=== PATIENT | female | born 1980 | race Two or more races ===

== ENCOUNTER 2023-01-28 14:58 | Emergency (ER) | payer MEDICAID, OTHER ==
[~2023-01-28] VITALS: Ht 165.1 cm; Wt 92.0 kg
[2023-01-28] MEDS ORDERED: IBUP800T27 PO (18:37)
[2023-01-28] MEDS ORDERED: KETOROLAC TROMETH 60MG/2ML VIAL IM ONE (18:45)
[2023-01-28 19:09] VITALS: BP 141/90
== END 2023-01-28 19:16 | disposition home or self-care (01) ==
LOC: ER 14:58
DX: G44.209 Tension-type headache, unspecified, not intractable (principal); I10 Essential (primary) hypertension; Z90.710 Acquired absence of both cervix and uterus
CPT/HCPCS: 70450; 96372; 99285; J1885